=== PATIENT | female | born 1975 | race American Indian/Alaskan Native ===

== ENCOUNTER 2021-01-23 21:45 | Observation (INO) | payer SELFPAY ==
[2021-01-23] MEDS ORDERED: MORPHINE 4 MG/1 ML INJ IV ONE (22:20)
[2021-01-23] MEDS ORDERED: ONDANSETRON 4 MG/2 ML INJ IV ONE (22:20)
--- NOTE | 2021-01-23 22:22 | Emergency Department Report ---
HPI - General Chief Complaint: Pain General Time Seen by Provider: 01/23/21 21:57 - HPI HPI: This is a 45-year-old -[place] female presents to the emergency department with complaint of pain to the right hip and buttock, as well as the left upper extremity, that has been going on for the past 1 to 2 weeks. The patient says that she had a biopsy done to the right buttock and "I think they had a nerve." Patient is currently being evaluated and treated for leukemia at [facility]. The patient gets pain management through [facility] but has run out of her pain medication. She says that she has contacted them but has not yet been called back for either appointment or a medication refill. She denies any skin color change, swelling to these areas of discomfort. She denies any falls or trauma. ED Past Medical Hx - Social History Smoking Status: Never Smoker ED Review of Systems ROS: Stated complaint: PAIN ALL OVER Other details as noted in HPI Comment: All other systems reviewed and negative Constitutional: denies: chills, fever Eyes: denies: eye pain, vision change ENT: denies: ear pain, throat pain Respiratory: denies: cough, shortness of breath Cardiovascular: denies: chest pain, palpitations Gastrointestinal: denies: abdominal pain, vomiting Genitourinary: denies: dysuria, discharge Musculoskeletal: arthralgia, myalgia. denies: joint swelling Skin: denies: rash, lesions Neurological: denies: headache, numbness, paresthesias Physical Exam - Physical Exam Vital Signs: Vital Signs 01/23/21 01/23/21 21:58 22:01 Temperature 99.0 F Pulse Rate 108 H Respiratory 17 Rate Blood Pressure 142/84 O2 Sat by Pulse 99 Oximetry Physical Exam: GENERAL: The patient is well-developed well-nourished. HENT: Normocephalic. Atraumatic. Patient has moist mucous membranes. EYES: Extraocular motions are intact. NECK: Supple. Trachea is midline. CHEST/LUNGS: Clear to auscultation. There is no respiratory distress noted. HEART/CARDIOVASCULAR: Regular. There is mild tachycardia. There is no murmur. ABDOMEN: Abdomen is soft, nontender. Patient has normal bowel sounds. There is no abdominal distention. SKIN: Skin is warm and dry. The biopsy site is seen to the right lateral buttock without any fluctuance, induration, erythema, bleeding or discharge. NEURO: The patient is awake, alert, and oriented. The patient is cooperative. The patient has no focal neurologic deficits. Normal speech. MUSCULOSKELETAL: There is some reproducible tenderness to palpation along the left upper extremity without any obvious deformity. Radial pulse +2/4 and capillary refill less than 2 seconds to the affected left upper extremity. There is no limitation range of motion. There is some tenderness to palpation along the right hip and buttock. ED Course Vital Signs 01/23/21 01/23/21 21:58 22:01 Temperature 99.0 F Pulse Rate 108 H Respiratory 17 Rate Blood Pressure 142/84 O2 Sat by Pulse 99 Oximetry ED Medical Decision Making - Lab Data Result diagrams: 01/24/21 05:46 01/24/21 05:46 Lab Results 01/23/21 01/23/21 01/24/21 Range/Units 22:28 22:28 00:01 WBC 16.2 H (4.5-11.0) K/mm3 RBC 3.77 (3.65-5.03) M/mm3 Hgb 11.5 (10.1-14.3) gm/dl Hct 34.5 (30.3-42.9) % MCV 91 (79-97) fl MCH 31 (28-32) pg MCHC 33 (30-34) % RDW 16.4 H (13.2-15.2) % Plt Count 188 (140-440) K/mm3 [place] % (Auto) Minilab Operator Add Manual Diff Complete Total Counted 100 Seg Neuts % (Manual) 81.0 H (40.0-70.0) % Band Neutrophils % 1.0 % Lymphocytes % (Manual) 9.0 L (13.4-35.0) % Monocytes % (Manual) 9.0 H (0.0-7.3) % Nucleated RBC % 4.0 H (0.0-0.9) % Seg Neutrophils # Man 13.1 H (1.8-7.7) K/mm3 Band Neutrophils # 0.2 K/mm3 Lymphocytes # (Manual) 1.5 (1.2-5.4) K/mm3 Abs React Lymphs (Man) 0.0 K/mm3 Monocytes # (Manual) 1.5 H (0.0-0.8) K/mm3 Eosinophils # (Manual) 0.0 (0.0-0.4) K/mm3 Basophils # (Manual) 0.0 (0.0-0.1) K/mm3 Metamyelocytes # 0.0 K/mm3 Myelocytes # 0.0 K/mm3 Promyelocytes # 0.0 K/mm3 Blast Cells # 0.0 K/mm3 WBC Morphology Not Reportable Hypersegmented Neuts Not Reportable Hyposegmented Neuts Not Reportable Hypogranular Neuts Not Reportable Smudge Cells Not Reportable Toxic Granulation Not Reportable Toxic Vacuolation Not Reportable Dohle Bodies Not Reportable Pelger-Huet Anomaly Not Reportable [place] Rods Not Reportable Platelet Estimate Consistent w auto Clumped Platelets Not Reportable Plt Clumps, EDTA Not Reportable Large Platelets Few Giant Platelets Not Reportable Platelet Satelliting Not Reportable Plt Morphology Comment Not Reportable RBC Morphology Not Reportable Dimorphic RBCs Not Reportable Polychromasia Few Hypochromasia Not Reportable Poikilocytosis Not Reportable Anisocytosis 1+ Microcytosis Not Reportable Macrocytosis Not Reportable Spherocytes Not Reportable Pappenheimer Bodies Not Reportable Sickle Cells Not Reportable Target Cells Not Reportable Tear Drop Cells Not Reportable Ovalocytes Not Reportable Helmet Cells Not Reportable [place] Bodies Not Reportable [place] Rings Not Reportable [place] Cells Not Reportable Bite Cells Not Reportable Crenated Cell Not Reportable Elliptocytes Not Reportable Acanthocytes (Spur) Not Reportable Rouleaux Not Reportable Hemoglobin C Crystals Not Reportable Schistocytes Not Reportable Malaria parasites Not Reportable Mio Bodies Not Reportable Hem Pathologist Commnt No Sodium 137 (137-145) mmol/L Potassium 4.6 (3.6-5.0) mmol/L Chloride 101.1 (98-107) mmol/L Carbon Dioxide 23 (22-30) mmol/L Anion Gap 18 mmol/L BUN 3 L (7-17) mg/dL Creatinine 0.4 L (0.6-1.2) mg/dL Estimated GFR > 60 ml/min BUN/Creatinine Ratio 8 % Glucose 117 H (65-100) mg/dL Calcium 9.1 (8.4-10.2) mg/dL Troponin T 0.089 H (0.00-0.029) ng/mL Triglycerides 140 (2-149) mg/dL Cholesterol 191 (50-199) mg/dL LDL Cholesterol Direct 120 (50-130) mg/dL HDL Cholesterol 33 L (40-59) mg/dL Cholesterol/HDL Ratio 5.78 % - EKG Data -: EKG Interpreted by Me EKG shows normal: sinus rhythm, axis, intervals, QRS complexes, ST-T waves Rate: tachycardia (109 bpm) - EKG Data When compared to previous EKG there are: previous EKG unavailable Interpretation: normal EKG (With tachycardia at 109 bpm) - Radiology Data Radiology results: image reviewed interpreted by me: Chest x-ray does not show any acute process. There are no pleural effusions, obvious pneumonia and there is no pneumothorax. No widened mediastinum. - Medical Decision Making This patient presents to the emergency department with complaint of a 1.5 to 2- week history of right hip and buttock pain after having a biopsy done. She also complains of a 3 to 4-day history of left upper extremity pain that goes from her hand up through the shoulder. With nurse Ordaz at bedside, the patient's buttock was evaluated and I see the area where the biopsy occurred, but there are no current signs of infection. There is some reproducible tenderness to palpation to the right buttock and right hip. The left upper extremity has some reproducible tenderness to palpation, but no obvious deformity and the patient is neurovascularly intact. The patient was given 2 doses of IV analgesia with some improvement of her pain. The patient's right hip/buttock pain may be able to be explained from having the biopsy procedure. However the patient did not have any biopsy or procedure to the left upper extremity, nor any fall or trauma. She once again explained that the pain goes up through her shoulder but then also says that it goes into her left shoulder blade. For this reason, and despite not having chest pain, I ordered a troponin and EKG. The EKG came back showing sinus tachycardia at 109 bpm, but no morphology consistent with ST elevation myocardial infarction or any dysrhythmia. The first troponin, however, came back positive at 0.089. The patient has been given a full dose aspirin. We will trend the troponins, and the patient will be admitted to the hospital for further evaluation and treatment. She was accepted for admission by Dr. Chapman. Critical Care Time: Yes Critical care time in (mins) excluding proc time.: 31 Critical care attestation.: If time is entered above; I have spent that time in minutes in the direct care of this critically ill patient, excluding procedure time. Critical care time was spent on this patient doing her initial evaluation, multiple reevaluations, ordering and interpretation of labs and imaging, interpretation of EKG, multiple doses of IV analgesia, and multiple discussions with the patient. Critical Care Time: 31 minutes ED Disposition Clinical Impression: History of leukemia, Left arm pain, Right hip pain, Hypertension, Elevated troponin Disposition: OP ADMIT IP TO THIS HOSP Is pt being admited?: Yes Condition: Serious Time of Disposition: 01:31
[2021-01-23 22:45] LABS: Hematocrit 34.5 % (30.3-42.9); Hemoglobin 11.5 gm/dl (10.1-14.3); Mean Corpuscular HGB Conc 33 % (30-34); Mean Corpuscular Volume 91 fl (79-97); Platelet Count 188 K/mm3 (140-440); Red Blood Count 3.77 M/mm3 (3.65-5.03); Red Cell Distribution Width 16.4 % (13.2-15.2)
[2021-01-23 23:02] LABS: Blood Urea Nitrogen 3 mg/dL (7-17); Calcium 9.1 mg/dL (8.4-10.2); Hemolysis Index 27
[2021-01-23 23:07] LABS: BUN/Creatinine Ratio 8
[2021-01-23 23:21] LABS: Anisocytosis 1+; Band Neutrophils # (Manual) 0.2 K/mm3; Total Cells Counted 100
[2021-01-23 23:22] LABS: Large Platelets Few; Platelet Estimate Consistent w Auto
[2021-01-23] MEDS ORDERED: HYDROmorphone 1 MG/1 ML INJ IV ONE (23:43)
[2021-01-24] MEDS ORDERED: ASPIRIN 81 MG TAB CHEW PO ONE (00:54)
[2021-01-24 01:31] LABS: Chol/HDL Ratio 5.78 %
--- NOTE | 2021-01-24 01:42 | XRay Report ---
XR chest 1V ap INDICATION / CLINICAL INFORMATION: CP. COMPARISON: None available. FINDINGS: SUPPORT DEVICES: Right chest wall port terminates over the lower SVC/cavoatrial junction. HEART /PULMONARY VASCULATURE: No significant abnormality. LUNGS / PLEURA: There is opacity within the left lung base. Right lung is clear. No pleural effusion. No pneumothorax. ADDITIONAL FINDINGS: No significant additional findings. IMPRESSION: Airspace opacity within the left lung base may reflect atelectasis or pneumonia. Signer Name: Raz Marurfo MD Signed: 01/24/2021 1:37 AM Workstation Name: [id number]
[2021-01-24] MEDS ORDERED: traMADol 50 MG TAB PO PRN (03:45)
[2021-01-24] MEDS ORDERED: NITROGLYCERIN 0.4 MG TAB SUBL SL PRN (03:45)
[2021-01-24] MEDS ORDERED: ACETAMINOPHEN 325 MG TAB PO PRN (03:45)
--- NOTE | 2021-01-24 03:54 | History and Physical Report ---
History of Present Illness Date of examination: 01/24/21 Date of admission: 01/24/21 01:31 Chief complaint: Left arm pain History of present illness: 45-year-old -[place] female with past medical history of leukemia currently being evaluated and treated at an outside hospital was brought to the emergency room because of pain to the right hip and buttock, as well as the left upper extremity, that has been going on for the past 1 to 2 weeks. The patient says that she had a biopsy done to the right buttock and "I think they had a nerve." The patient gets pain management through [facility] but has run out of her pain medication. She says that she has contacted them but has not yet been called back for either appointment or a medication refill. She denies any skin color change, swelling to these areas of discomfort. She denies any falls or trauma. In the emergency room patient is found to have elevated troponin 0 0.089. Also patient WBC is 16.2 Past History Past Medical History: other (Leukemia) Medications and Allergies Allergies Allergy/AdvReac Type Severity Reaction Status Date / Time No Known Allergies Allergy Unverified 01/23/21 21:58 Active Meds: Active Medications Acetaminophen (Acetaminophen 325 Mg Tab) 650 mg PO Q6H PRN PRN Reason: Pain, Mild (1-3) Aspirin (Aspirin Ec 325 Mg Tab) 325 mg PO QDAY NEETA Atorvastatin Calcium (Atorvastatin 40 Mg Tab) 40 mg PO QHS NEETA Azithromycin (Azithromycin 250 Mg Tab) 250 mg PO QDAY NEETA; Protocol Heparin Sodium (Porcine) (Heparin 5,000 Unit/1 Ml Vial) 5,000 unit SUB-Q Q8HR NEETA Ceftriaxone Sodium (Rocephin/Ns 2 Gm/100 Ml) 2 gm in 100 mls @ 200 mls/hr IV Q24H NEETA; Protocol Morphine Sulfate (Morphine 4 Mg/1 Ml Inj) 2 mg IV Q5MIN PRN PRN Reason: Chest Pain Nitroglycerin (Nitroglycerin 0.4 Mg Tab Subl) 0.4 mg SL Q5M PRN PRN Reason: Chest Pain Pantoprazole Sodium (Pantoprazole 40 Mg Tab) 40 mg PO QDAY NEETA Sodium Chloride (Sodium Chloride 0.9% 10 Ml Flush Syringe) 10 ml IV PRN PRN PRN Reason: LINE FLUSH Tramadol HCl (Tramadol 50 Mg Tab) 50 mg PO Q6H PRN PRN Reason: Pain, Moderate (4-6) Review of Systems Musculoskeletal: other (Left upper extremity pain right buttock pain) Exam - Constitutional Vitals: Temp Pulse Resp BP Pulse Ox 99.0 F 108 H 18 158/84 97 01/23/21 22:01 01/23/21 21:58 01/23/21 22:53 01/24/21 03:00 01/24/21 03:00 General appearance: Present: no acute distress, well-nourished - EENT Eyes: Present: PERRL ENT: hearing intact, clear oral mucosa - Neck Neck: Present: supple, normal ROM - Respiratory Respiratory effort: normal Respiratory: bilateral: CTA - Cardiovascular Heart Sounds: Present: S1 & S2. Absent: rub, click - Extremities Extremities: pulses symmetrical, No edema Peripheral Pulses: within normal limits - Abdominal General gastrointestinal: Present: soft, non-tender, non-distended, normal bowel sounds Female genitourinary: Present: normal - Integumentary Integumentary: Present: clear, warm, dry - Musculoskeletal Musculoskeletal: gait normal, strength equal bilaterally - Psychiatric Psychiatric: appropriate mood/affect, intact judgment & insight - Neurologic Neurologic: CNII-XII intact, moves all extremities HEART Score - HEART Score Troponin: Troponin T 0.100 ng/mL (0.00-0.029) H 01/24/21 03:02 Results - Labs CBC & Chem 7: 01/23/21 22:28 01/23/21 22:28 Labs: Laboratory Last Values WBC 16.2 K/mm3 (4.5-11.0) H 01/23/21 22:28 RBC 3.77 M/mm3 (3.65-5.03) 01/23/21 22:28 Hgb 11.5 gm/dl (10.1-14.3) 01/23/21 22:28 Hct 34.5 % (30.3-42.9) 01/23/21 22:28 MCV 91 fl (79-97) 01/23/21 22:28 MCH 31 pg (28-32) 01/23/21 22:28 MCHC 33 % (30-34) 01/23/21 22:28 RDW 16.4 % (13.2-15.2) H 01/23/21 22:28 Plt Count 188 K/mm3 (140-440) 01/23/21 22:28 [place] % (Auto) Voice Systems Engineer 01/23/21 22:28 Add Manual Diff Complete 01/23/21 22:28 Total Counted 100 01/23/21 22:28 Seg Neuts % (Manual) 81.0 % (40.0-70.0) H 01/23/21 22:28 Band Neutrophils % 1.0 % 01/23/21 22:28 Lymphocytes % (Manual) 9.0 % (13.4-35.0) L 01/23/21 22:28 Monocytes % (Manual) 9.0 % (0.0-7.3) H 01/23/21 22:28 Nucleated RBC % 4.0 % (0.0-0.9) H 01/23/21 22:28 Seg Neutrophils # Man 13.1 K/mm3 (1.8-7.7) H 01/23/21 22:28 Band Neutrophils # 0.2 K/mm3 01/23/21 22:28 Lymphocytes # (Manual) 1.5 K/mm3 (1.2-5.4) 01/23/21 22:28 Abs React Lymphs (Man) 0.0 K/mm3 01/23/21 22:28 Monocytes # (Manual) 1.5 K/mm3 (0.0-0.8) H 01/23/21 22:28 Eosinophils # (Manual) 0.0 K/mm3 (0.0-0.4) 01/23/21 22:28 Basophils # (Manual) 0.0 K/mm3 (0.0-0.1) 01/23/21 22:28 Metamyelocytes # 0.0 K/mm3 01/23/21 22:28 Myelocytes # 0.0 K/mm3 01/23/21 22:28 Promyelocytes # 0.0 K/mm3 01/23/21 22:28 Blast Cells # 0.0 K/mm3 01/23/21 22:28 WBC Morphology Not Reportable 01/23/21 22:28 Hypersegmented Neuts Not Reportable 01/23/21 22:28 Hyposegmented Neuts Not Reportable 01/23/21 22:28 Hypogranular Neuts Not Reportable 01/23/21 22:28 Smudge Cells Not Reportable 01/23/21 22:28 Toxic Granulation Not Reportable 01/23/21 22:28 Toxic Vacuolation Not Reportable 01/23/21 22:28 Dohle Bodies Not Reportable 01/23/21 22:28 Pelger-Huet Anomaly Not Reportable 01/23/21 22:28 Mustapha Rods Not Reportable 01/23/21 22:28 Platelet Estimate Consistent w auto 01/23/21 22:28 Clumped Platelets Not Reportable 01/23/21 22:28 Plt Clumps, EDTA Not Reportable 01/23/21 22:28 Large Platelets Few 01/23/21 22:28 Giant Platelets Not Reportable 01/23/21 22:28 Platelet Satelliting Not Reportable 01/23/21 22:28 Plt Morphology Comment Not Reportable 01/23/21 22:28 RBC Morphology Not Reportable 01/23/21 22:28 Dimorphic RBCs Not Reportable 01/23/21 22:28 Polychromasia Few 01/23/21 22:28 Hypochromasia Not Reportable 01/23/21 22:28 Poikilocytosis Not Reportable 01/23/21 22:28 Anisocytosis 1+ 01/23/21 22:28 Microcytosis Not Reportable 01/23/21 22:28 Macrocytosis Not Reportable 01/23/21 22:28 Spherocytes Not Reportable 01/23/21 22:28 Pappenheimer Bodies Not Reportable 01/23/21 22:28 Sickle Cells Not Reportable 01/23/21 22:28 Target Cells Not Reportable 01/23/21 22:28 Tear Drop Cells Not Reportable 01/23/21 22:28 Ovalocytes Not Reportable 01/23/21 22:28 Helmet Cells Not Reportable 01/23/21 22:28 [place] Bodies Not Reportable 01/23/21 22:28 [place] Rings Not Reportable 01/23/21 22:28 [place] Cells Not Reportable 01/23/21 22:28 Bite Cells Not Reportable 01/23/21 22:28 Crenated Cell Not Reportable 01/23/21 22:28 Elliptocytes Not Reportable 01/23/21 22:28 Acanthocytes (Spur) Not Reportable 01/23/21 22:28 Rouleaux Not Reportable 01/23/21 22:28 Hemoglobin C Crystals Not Reportable 01/23/21 22:28 Schistocytes Not Reportable 01/23/21 22:28 Malaria parasites Not Reportable 01/23/21 22:28 Mio Bodies Not Reportable 01/23/21 22:28 Hem Pathologist Commnt No 01/23/21 22:28 Sodium 137 mmol/L (137-145) 01/23/21 22:28 Potassium 4.6 mmol/L (3.6-5.0) 01/23/21 22:28 Chloride 101.1 mmol/L (98-107) 01/23/21 22:28 Carbon Dioxide 23 mmol/L (22-30) 01/23/21 22:28 Anion Gap 18 mmol/L 01/23/21 22:28 BUN 3 mg/dL (7-17) L 01/23/21 22:28 Creatinine 0.4 mg/dL (0.6-1.2) L 01/23/21 22:28 Estimated GFR > 60 ml/min 01/23/21 22:28 BUN/Creatinine Ratio 8 % 01/23/21 22:28 Glucose 117 mg/dL (65-100) H 01/23/21 22:28 Calcium 9.1 mg/dL (8.4-10.2) 01/23/21 22:28 Troponin T 0.100 ng/mL (0.00-0.029) H 01/24/21 03:02 Triglycerides 140 mg/dL (2-149) 01/24/21 00:01 Cholesterol 191 mg/dL (50-199) 01/24/21 00:01 LDL Cholesterol Direct 120 mg/dL (50-130) 01/24/21 00:01 HDL Cholesterol 33 mg/dL (40-59) L 01/24/21 00:01 Cholesterol/HDL Ratio 5.78 % 01/24/21 00:01 - Imaging and Cardiology Chest x-ray: report reviewed Assessment and Plan VTE prophylaxis?: Chemical Plan of care discussed with patient/family: Yes - Patient Problems (1) Elevated troponin Current Visit: Yes Status: Acute Plan to address problem: Admit the patient to the medical telemetry. Aspirin 325 mg p.o. daily. Nitroglycerin as needed. Lipitor 40 mg p.o. daily. Do the serial cardiac enzyme. Echocardiogram. Cardiology consult (2) History of leukemia Current Visit: Yes Status: Acute Plan to address problem: Patient is currently evaluated and treated at [facility] for leukemia (3) Hypertension Current Visit: Yes Status: Acute Plan to address problem: Hydralazine 10 mg IV every 6 hours as needed. We continue the home medication. We will monitor the blood pressure closely (4) Left arm pain Current Visit: Yes Status: Acute Plan to address problem: Aspirin 325 mg p.o. daily. Nitroglycerin as needed. Lipitor 40 mg p.o. daily. Do the serial cardiac enzyme. Echocardiogram. Cardiology consult (5) Right hip pain Current Visit: Yes Status: Acute Plan to address problem: Tylenol 650 mg p.o. every 6 hours as needed. Morphine 2 mg IV every 4 hours as needed. We will monitor the patient closely (6) Leukocytosis Current Visit: Yes Status: Acute Plan to address problem: Rocephin 2 g IV daily and Zithromax to 50 mg p.o. daily. We recheck the CBC in the morning (7) DVT prophylaxis Current Visit: Yes Status: Acute Plan to address problem: Heparin 5000 units subcu every 8 hours for DVT prophylaxis. Pepcid 20 mg p.o. twice daily for GI prophylaxis. Patient is a full code
[2021-01-24] MEDS: cefTRIAXone/NS 2 GM/100 ML 2 GM/100 ML BAG IV SCH (05:07)
[2021-01-24] MEDS: HEPARIN 5,000 UNIT/1 ML VIAL SUB-Q SCH ×3 (05:07→21:56)
[2021-01-24] MEDS: MORPHINE 2 MG/1 ML INJ IV PRN ×2 (05:09→08:46)
[2021-01-24] MEDS: ONDANSETRON 4 MG/2 ML INJ IV PRN ×2 (05:37→10:58)
[2021-01-24 06:21] LABS: Hematocrit 28.5 % (30.3-42.9); Hemoglobin 9.6 gm/dl (10.1-14.3); Mean Corpuscular HGB Conc 34 % (30-34); Mean Corpuscular Volume 89 fl (79-97); Platelet Count 128 K/mm3 (140-440); Red Blood Count 3.19 M/mm3 (3.65-5.03); Red Cell Distribution Width 16.3 % (13.2-15.2)
[2021-01-24 06:34] LABS: Blood Urea Nitrogen 3 mg/dL (7-17); Hemolysis Index 3
[2021-01-24 06:35] LABS: BUN/Creatinine Ratio 8
[2021-01-24] MEDS: oxyCODONE /ACETAMINOPHEN 5-325MG TAB PO PRN ×2 (10:43→17:19)
[2021-01-24] MEDS: AZITHROMYCIN 250 MG TAB PO SCH ×2 (10:44→12:21)
[2021-01-24] MEDS: PANTOPRAZOLE 40 MG TAB PO SCH ×2 (10:44→12:21)
--- NOTE | 2021-01-24 10:49 | Electrocardiograph Report ---
[facility] Test Date: 2021-01-24 Test Time: 01:04:17 Pat Name: DORA AMARAL Department: Room: A453 1 Gender: F Learning Consultant: ALFIE : 1975 Requested By: APARNA KELLEY Order Number: [id number] Reading MD: Herbert Moreno Measurements Intervals [place] Rate: 109 P: 54 [place]: 155 QRS: 5 QRSD: 73 T: 26 QT: 336 QTc: 452 Interpretive Statements Sinus tachycardia No previous ECG available for comparison Electronically Signed On 01-24-2021 10:49:16 EDT by Herbert Moreno
--- NOTE | 2021-01-24 10:53 | Electrocardiograph Report ---
[facility] Test Date: 2021-01-24 Test Time: 07:06:09 Pat Name: DORA AMARAL Department: Room: A453 1 Gender: F Wireworker: MARILU : 1975 Requested By: LA RANDOLPH Order Number: [id number] Reading MD: Herbert Moreno Measurements Intervals [place] Rate: 104 P: 37 [place]: 148 QRS: 8 QRSD: 76 T: 1 QT: 321 QTc: 423 Interpretive Statements Sinus tachycardia Anterior infarct, old Compared to ECG 01/24/2021 01:04:17 No significant change from earlier EKG done today. Electronically Signed On 01-24-2021 10:53:42 EDT by Herbert Moreno
[2021-01-24] MEDS ORDERED: HYDROmorphone 1 MG/1 ML INJ IV SCH (11:00)
[2021-01-24] MEDS ORDERED: MORPHINE 4 MG/1 ML INJ IV PRN (11:10)
--- NOTE | 2021-01-24 11:28 | Event Note ---
Date: 01/24/21 Patient was seen and evaluated this morning. Patient was crying due to pain of the lower extremities. Patient states it has been chronic. She said she called her pain management physician to get refill but she did not. Since the pain is severe I am going to keep in the hospital and possible discharge tomorrow if pain is controlled.
[2021-01-24] MEDS ORDERED: MORPHINE 4 MG/1 ML INJ IV SCH (12:00)
[2021-01-24 12:28] LABS: Total Cells Counted 100
[2021-01-24 12:30] LABS: Platelet Estimate Consistent w Auto; RBC Morphology Normal
--- NOTE | 2021-01-24 13:29 | Consultation ---
History of Present Illness Consult date: 01/24/21 Consult reason: elevated troponin History of present illness: The patient is a 45-year-old woman who is undergoing work-up at [facility] for leukemia. As part of her work-up, 2 weeks ago she had a right posterior iliac bone marrow biopsy. Since then, the patient has had persistent and intractable pain in the right hip and buttock, adjacent to the biopsy site. She went to her doctors at [facility] who prescribed pain medications and plan further evaluation by pain management as indicated. The patient states that she ran out of her pain medications, could not immediately obtain additional refills, and presented to emergency room with persistent right buttock and right hip pain. She was treated in the emergency room as previously documented in the ER records. During her ER course, she was said to have complained of some musculoskeletal type left arm pain. She described numbness in the left hand which migrated to the shoulder and was positioning in character, no associated chest pain, no shortness of breath and no palpitations. For this atypical pain, she underwent emergency room work-up with an EKG and troponin measurements. The serial troponin measurements were mildly elevated, at 0.10 and remaining flat over 4 serial measurements. Cardiology consultation was requested for further assessment of the troponin elevation. The patient has no prior cardiac history. Currently she is on the telemetry floor, says she has no problems with her left arm, but still requesting pain medications for the right hip and right buttock pain. Twelve-lead EKG shows a sinus rhythm, poor R wave progression suggestive of a prior anteroseptal myocardial infarction, but no acute ST or T wave changes. Chest x-ray shows borderline cardiomegaly, with clear lungs. Past History Past Medical History: other (Leukemia) Medications and Allergies Allergies Allergy/AdvReac Type Severity Reaction Status Date / Time No Known Allergies Allergy Unverified 01/23/21 21:58 Active Meds: Active Medications Acetaminophen (Acetaminophen 325 Mg Tab) 650 mg PO Q6H PRN PRN Reason: Pain, Mild (1-3) Aspirin (Aspirin Ec 325 Mg Tab) 325 mg PO QDAY NEETA Atorvastatin Calcium (Atorvastatin 40 Mg Tab) 40 mg PO QHS NEETA Azithromycin (Azithromycin 250 Mg Tab) 250 mg PO QDAY [facility]; Protocol Stop: 01/28/21 10:01 Last Admin: 01/24/21 12:21 Dose: Not Given Documented by: Heparin Sodium (Porcine) (Heparin 5,000 Unit/1 Ml Vial) 5,000 unit SUB-Q Q8HR [facility] Last Admin: 01/24/21 05:07 Dose: 5,000 unit Documented by: Hydromorphone HCl (Hydromorphone 1 Mg/1 Ml Inj) 1 mg IV ONCE [facility] Stop: 01/24/21 14:00 Last Admin: 01/24/21 10:56 Dose: 1 mg Documented by: Hydromorphone HCl (Hydromorphone 1 Mg/1 Ml Inj) 0.5 mg IV Q3H PRN PRN Reason: Pain , Severe (7-10) Ceftriaxone Sodium (Rocephin/Ns 2 Gm/100 Ml) 2 gm in 100 mls @ 200 mls/hr IV Q24HR [facility]; Protocol Stop: 01/28/21 10:29 Last Admin: 01/24/21 05:07 Dose: 200 mls/hr Documented by: Nitroglycerin (Nitroglycerin 0.4 Mg Tab Subl) 0.4 mg SL Q5M PRN PRN Reason: Chest Pain Ondansetron HCl (Ondansetron 4 Mg/2 Ml Inj) 4 mg IV Q6H PRN PRN Reason: Nausea And Vomiting Last Admin: 01/24/21 10:58 Dose: 4 mg Documented by: Oxycodone/Acetaminophen (Oxycodone /Acetaminophen 5-325mg Tab) 2 tab PO Q6H PRN PRN Reason: Pain, Moderate (4-6) Last Admin: 01/24/21 10:43 Dose: 2 tab Documented by: Pantoprazole Sodium (Pantoprazole 40 Mg Tab) 40 mg PO QDAY [facility] Last Admin: 01/24/21 12:21 Dose: Not Given Documented by: Sodium Chloride (Sodium Chloride 0.9% 10 Ml Flush Syringe) 10 ml IV PRN PRN PRN Reason: LINE FLUSH Review of Systems Cardiovascular: no chest pain, no orthopnea, no palpitations, no rapid/irregular heart beat, no edema, no syncope, no lightheadedness, no shortness of breath Physical Examination Vital Signs Pulse Resp BP Pulse Ox 108 H 17 142/84 99 01/23/21 21:58 01/23/21 21:58 01/23/21 21:58 01/23/21 21:58 General appearance: no acute distress HEENT: Positive: PERRL Neck: Positive: neck supple Cardiac: Positive: Reg Rate and Rhythm Lungs: Positive: clear to auscultation Neuro: Positive: Grossly Intact Abdomen: Positive: Soft Female genitourinary: deferred Skin: Positive: Clear Extremities: Absent: edema Results 01/24/21 05:46 01/24/21 05:46 Lipids 01/24/21 Range/Units 00:01 Triglycerides 140 (2-149) mg/dL Cholesterol 191 (50-199) mg/dL HDL Cholesterol 33 L (40-59) mg/dL Cholesterol/HDL Ratio 5.78 % CBC 01/23/21 01/24/21 Range/Units 22:28 05:46 WBC 16.2 H 14.1 H (4.5-11.0) K/mm3 RBC 3.77 3.19 L (3.65-5.03) M/mm3 Hgb 11.5 9.6 L (10.1-14.3) gm/dl Hct 34.5 28.5 L D (30.3-42.9) % Plt Count 188 128 L (140-440) K/mm3 [place] # (Auto) 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 Eos # (Auto) 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 Baso # (Auto) 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 Comprehensive Metabolic Panel 01/23/21 01/24/21 Range/Units 22:28 05:46 Sodium 137 140 (137-145) mmol/L Potassium 4.6 3.7 (3.6-5.0) mmol/L Chloride 101.1 102.3 (98-107) mmol/L Carbon Dioxide 23 29 (22-30) mmol/L BUN 3 L 3 L (7-17) mg/dL Creatinine 0.4 L 0.4 L (0.6-1.2) mg/dL Glucose 117 H 83 (65-100) mg/dL Calcium 9.1 9.0 (8.4-10.2) mg/dL EKG interpretations - Telemetry EKG Rhythm: Sinus Rhythm Assessment and Plan - Patient Problems (1) Elevated troponin Current Visit: Yes Status: Acute Plan to address problem: Patient has a nonspecific appearing troponin elevation in the absence of cardiac symptoms. Her left arm pain is resolved, but appeared likely musculoskeletal in origin. Due to abnormal underlying ECG, and mild cardiomegaly on chest x-ray, we will proceed with a predischarge Lexiscan thallium stress test. Patient understands and is agreeable to thallium stress test at this time.
[2021-01-24] MEDS: HYDROmorphone 1 MG/1 ML INJ IV PRN ×3 (14:40→21:50)
[2021-01-25] MEDS: oxyCODONE /ACETAMINOPHEN 5-325MG TAB PO PRN ×2 (00:53→12:25)
[2021-01-25] MEDS: HYDROmorphone 1 MG/1 ML INJ IV PRN ×5 (04:46→18:51)
[2021-01-25 05:50] LABS: Hematocrit 31.4 % (30.3-42.9); Hemoglobin 10.8 gm/dl (10.1-14.3); Mean Corpuscular HGB Conc 34 % (30-34); Mean Corpuscular Volume 90 fl (79-97); Platelet Count 113 K/mm3 (140-440); Red Cell Distribution Width 16.4 % (13.2-15.2)
[2021-01-25] MEDS: HEPARIN 5,000 UNIT/1 ML VIAL SUB-Q SCH ×2 (05:50→13:23)
[2021-01-25 06:10] LABS: Blood Urea Nitrogen 3 mg/dL (7-17); Calcium 9.6 mg/dL (8.4-10.2); Hemolysis Index 1
[2021-01-25 06:14] LABS: BUN/Creatinine Ratio 8
[2021-01-25] MEDS ORDERED: REGADENOSON 0.4 MG/5 ML INJ IV ONE (07:19)
[2021-01-25 08:42] LABS: Total Cells Counted 100
[2021-01-25 08:43] LABS: Anisocytosis Few; Band Neutrophils # (Manual) 1.7 K/mm3; Platelet Estimate Consistent w Auto
[2021-01-25] MEDS: cefTRIAXone/NS 2 GM/100 ML 2 GM/100 ML BAG IV SCH (11:30)
[2021-01-25] MEDS: AZITHROMYCIN 250 MG TAB PO SCH ×2 (11:31→11:40)
[2021-01-25] MEDS: ASPIRIN EC 325 MG TAB PO SCH ×2 (11:31→11:40)
[2021-01-25] MEDS: PANTOPRAZOLE 40 MG TAB PO SCH ×2 (11:31→11:40)
--- NOTE | 2021-01-25 11:51 | Discharge Summary ---
Providers - Providers Date of Admission: 01/24/21 01:31 Date of discharge: 01/25/21 Attending physician: ELIDIA REZA MD 01/24/21 Consult to Cardiac Rehabilitation [CONS] Routine Reason For Exam: Phase I 01/24/21 03:45 Consult to Cardiology [CONS] Routine Consulting Provider: ATTILA WEINBERG Reason For Exam: Elevated troponin Primary care physician: [employer] Hospitalization Reason for admission: Chronic pain, leukemia, elevated troponin, pneumonia Condition: Serious Hospital course: History of present illness: 45-year-old -[place] female with past medical history of leukemia currently being evaluated and treated at an outside hospital was brought to the emergency room because of pain to the right hip and buttock, as well as the left upper extremity, that has been going on for the past 1 to 2 weeks. The patient says that she had a biopsy done to the right buttock and "I think they had a nerve." The patient gets pain management through [facility] but has run out of her pain medication. She says that she has contacted them but has not yet been called back for either appointment or a medication refill. She denies any skin color change, swelling to these areas of discomfort. She denies any falls or trauma. In the emergency room patient is found to have elevated troponin 0 0.089. Also patient WBC is 16.2. Hospital course Patient was admitted to the floor and was placed on pain medications to control the pain. Patient's main complaint was pain. States she ran out of her pain medications and she called her pain doctor and did not answer her phone. At the time of discharge patient was given a prescription for Percocet until she sees her pain doctor. Chest x-ray also showed left lower lobe atelectasis versus pneumonia given patient has elevated WBC count eventhough patient has leukemia I put the patient on Keflex at the time of discharge. Patient was treated with ceftriaxone and azithromycin while she was inpatient. Patient had elevated troponin level and was evaluated by cardiology and stress test was done which was normal. Ejection fraction was 59% and cardiology recommend no further work- up. Patient discharged home. 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 Disposition: TO HOME OR SELFCARE Final Discharge Diagnosis (Prints w/discharge instructions): Chronic leg pain,. Leukemia. Elevated troponin. Pneumonia Time spent for discharge: 25 minutes - Discharge Diagnoses (1) Elevated troponin Status: Acute (2) History of leukemia Status: Acute (3) Hypertension Status: Acute (4) Left arm pain Status: Acute (5) Leukocytosis Status: Acute Core Measure Documentation - Palliative Care Palliative Care/ Comfort Measures: Not Applicable - Core Measures Any of the following diagnoses?: none Exam - Physical Exam Narrative exam: Not in cardiopulmonary distress. The patient appeared well nourished and normally developed. Vital signs as documented. Head exam is unremarkable. No scleral icterus . Neck is without jugular venous distension, thyromegaly, or carotid bruits. Lungs are clear to auscultation. Cardiac exam reveals regular rate and Rhythm. Abdominal exam reveals normal bowel sounds, nontender, no organomegaly. Extremities are nonedematous and both femoral and pedal pulses are normal. VARNISHER: Alert and oriented 3. No focal weakness. - Constitutional Vitals: Temp Pulse Resp BP Pulse Ox 98.4 F 114 H 18 162/95 98 01/25/21 04:35 01/25/21 04:35 01/25/21 04:35 01/25/21 04:35 01/25/21 04:35 Plan Activity: no restrictions Weight Bearing Status: Full Weight Bearing Diet: regular Additional Instructions: Follow-up with pain management and hematology Follow up with: PRIMARY CARE, [Primary Care Provider] - 3-5 Days Prescriptions: cephALEXin [Keflex] 500 mg PO Q8HR #15 cap oxyCODONE /ACETAMINOPHEN [Percocet 5/325 mg] 2 tab PO Q6H PRN #12 tablet PRN Reason: Pain, Moderate (4-6)
--- NOTE | 2021-01-25 13:06 | Nuclear Medicine Report ---
APPROVED REPORT Exam: Nuclear Stress Test Indication: Chest pain BMI: 0 Stress Test Details Stress Test: Pharmacologic stress testing performed using 0.4 mg of regadenoson per 5 mL given IV over 10 seconds. HR Resting HR: 104 bpm Max HR Achieved: 130 bpm Max Heart Rate (APMHR): 177 bpm Target HR (85% APMHR): 150 bpm % of APMHR: 73 Recovery HR: 118 bpm HR response to stress: Normal HR response to stress BP Resting BP: 137/80 mmHg Max BP: 154/98 mmHg Recovery BP: 137/88 mmHg BP response to stress: Normal blood pressure response to stress. ECG Resting ECG: Sinus Tachycardia Stress ECG: Sinus Tachycardia ST Change: None Arrhythmia: APC's Recovery ECG: Sinus tachycardia Recovery ST Change: None Recovery Arrhythmia: None Clinical Reason for Termination: Completed protocol Stress Symptoms: None Stress ECG Conclusion No angina and no ST changes of ischemia with pharmacologic stress testing, await myocardial perfusion images for final test interpretation. NM EXAM: Myocardial Perfusion REST/STRESS Imaging Protocol: Rest Tc-99m/Stress Tc-99m 1 day Resting Data Rest SPECT myocardial perfusion imaging was performed in supine position 45 minutes following the intravenous injection of 10 mCi of Tc-99m Myoview. Time of rest injection: 0700 Pharmacologic Stress Pharmacologic stress test was performed by injecting Regadenoson 0.4 mg IV push followed by the intravenous injection of 28 mCi of Tc-99m Myoview. Time of stress injection: 0942 Gated Stress SPECT was performed 30 minutes after stress injection. The images were gated to evaluate regional wall motion and calculate left ventricular ejection fraction. Study Data TID = 0.89. Perfusion Nuclear Conclusion ECG Findings: negative for ischemia Clinical Findings: negative for ischemia Nuclear Findings: negative for ischemia Left Ventricular Function: normal Risk Study: low Normal rest and stress perfusion images, normal left ventricular systolic function, ejection fraction 59%. Normal study. Conclusion No angina and no ST changes of ischemia with pharmacologic stress testing, await myocardial perfusion images for final test interpretation.
--- NOTE | 2021-01-25 13:26 | Progress Note ---
Assessment and Plan - Patient Problems (1) Elevated troponin Current Visit: Yes Status: Acute Plan to address problem: Patient presented with pain in the right hip area following a bone marrow biopsy, no active cardiac complaints. There was a nonspecific troponin elevation on serial measurements, a Lexiscan thallium stress test today was normal, ejection fraction 59%. No further cardiac work-up, stable for cardiac discharge. Subjective Date of service: 01/25/21 Interval history: Patient has no cardiac complaints. A review of the serial ECGs show that she has normal R wave transition across the precordium on one ECG tracing, suggesting that the previously seen poor R wave progression was likely due to lead placement. The patient completed a Lexiscan thallium stress test today for the finding of troponin elevation. There is normal myocardial perfusion scan, no defects, gated SPECT shows a normal left ventricular ejection fraction of 59%. Objective Vital Signs Temp Pulse Resp BP BP Pulse Ox 01/25/21 12:02 99.0 F 115 H 19 163/95 98 01/25/21 11:00 115 H 01/25/21 04:35 98.4 F 114 H 18 162/95 98 01/25/21 03:00 115 H 01/25/21 01:40 97.8 F 106 H 18 120/57 99 01/24/21 23:00 18 99 01/24/21 19:47 98.1 F 104 H 18 157/88 99 01/24/21 17:52 18 156/73 01/24/21 16:45 98.8 F 93 H 19 176/99 100 - Physical Examination HEENT: Positive: PERRL Neck: Positive: neck supple Neuro: Positive: Grossly Intact Abdomen: Positive: Soft Skin: Positive: Clear Extremities: Absent: edema - Labs and Meds CBC 01/25/21 Range/Units 04:57 WBC 14.2 H (4.5-11.0) K/mm3 RBC 3.50 L (3.65-5.03) M/mm3 Hgb 10.8 (10.1-14.3) gm/dl Hct 31.4 (30.3-42.9) % Plt Count 113 L (140-440) K/mm3 Comprehensive Metabolic Panel 01/25/21 Range/Units 04:57 Sodium 139 (137-145) mmol/L Potassium 4.1 (3.6-5.0) mmol/L Chloride 99.1 (98-107) mmol/L Carbon Dioxide 29 (22-30) mmol/L BUN 3 L (7-17) mg/dL Creatinine 0.4 L (0.6-1.2) mg/dL Glucose 71 (65-100) mg/dL Calcium 9.6 (8.4-10.2) mg/dL
[2021-01-25] MEDS ORDERED: BACITRACIN ZINC OINT 28.4 GM TP PRN (18:00)
[2021-01-25 21:25] VITALS: BP 101/80
== END 2021-01-25 21:00 | disposition home or self-care (01) ==
LOC: ED 21:45 → 4A 01-24 01:31
PROVIDERS: ADMIT Hospitalist; ATTEND Internal Medicine
DX: M79.602 Pain in left arm (principal); R77.8 Other specified abnormalities of plasma proteins; M25.551 Pain in right hip; I10 Essential (primary) hypertension; D72.829 Elevated white blood cell count, unspecified; R07.89 Other chest pain; Z85.6 Personal history of leukemia; Z79.82 Long term (current) use of aspirin
CPT/HCPCS: 36415; 71045; 78452; 80048; 80061; 84484; 85025; 93005; 93017; 93306; 96365; 96366; 96372; 96375; 96376; 99291; A9270; A9502; G0378; J0696; J1170; J1642; J1644; J2270; J2405; J2785; 85007; 87641